=== PATIENT | female | born 1970 | race African-American/Black ===

== ENCOUNTER 2016-12-19 08:41 | Emergency (ER) | payer OTHER, SELFPAY ==
[2016-12-19] MEDS ORDERED: Ketorolac Tromethamine 60 MG/2 ML VIAL ONE (10:25)
--- NOTE | 2016-12-19 12:31 | RAD ---
LUMBAR SPINE 3 VIEWS: Date: 12/19/16 HISTORY: Back pain. FINDINGS: There are six lumbar-type vertebrae. Pedicles are intact. Vertebral body height and alignment are ma intained. No acute fracture or dislocation are apparent. IMPRESSION: Six lumbar-type vertebrae, so that great care must be taken when assigning numbering on cross-sectio nal imaging. No acute osseous abnormalities are demonstrated. POS: YOU
== END 2016-12-19 12:55 | disposition home or self-care (01) ==
LOC: ERS 08:41
DX: M54.5 Low back pain (principal); V43.92XA Unspecified car occupant injured in collision with other type car in traffic accident, initial encounter
CPT/HCPCS: 72100; 96372; J1885

== ENCOUNTER 2017-03-31 15:09 | Emergency (ER) | payer OTHER, SELFPAY ==
[2017-03-31 16:09] LABS: Bilirubin Negative (Negative); Blood, Urine Moderate (Negative); Clarity CLEAR (Clear); Glucose, Urine (Dipstick) Negative (Negative); Leukocyte Small (Negative); Nitrite Negative (Negative); Protein, Urine (Dipstick) Negative (Neg-Trace); Specific Gravity, Urine 1.022 (1.002-1.036); Urobilinogen 0.2 mg/dL (0.2-1.0)
[2017-03-31 16:11] LABS: Pregnancy Test - Urine (BHCG) Negative (Negative); Pregu Control Background? CLEAR/WHITE (CLR/WHITE); Pregu Control Bar Appear? YES (CONTROL BAR); Specific Gravity 1.022 (1.002-1.036)
[2017-03-31 16:13] LABS: Bacteria/HPF None Seen HPF (None Seen); Hyaline Casts/LPF 0-3 HYALINE CAST LPF (0-3 Hyaline); Pathc Cast-AUWi Flag 0.13 (0-2.49); Squamous Epithelial 0-3 HPF (0-3)
== END 2017-03-31 16:24 | disposition home or self-care (01) ==
LOC: ERS 15:09
DX: N39.0 Urinary tract infection, site not specified (principal); J06.9 Acute upper respiratory infection, unspecified
CPT/HCPCS: 81003; 81015; 81025; 87086; 99283

== ENCOUNTER 2017-09-07 15:28 | Emergency (ER) | payer SELFPAY ==
[2017-09-07] MEDS ORDERED: Lidocaine 1% w/Epinephrine 1:100K 20 ML VIAL ONE (16:50)
[2017-09-07] MEDS ORDERED: diphenhydrAMINE 50 MG CAP ONE (17:52)
[2017-09-07] MEDS ORDERED: Ketorolac Tromethamine 30 MG/ML VIAL ONE (17:52)
[2017-09-07] MEDS ORDERED: Metoclopramide HCl 10 MG TAB ONE (17:52)
== END 2017-09-07 18:00 | disposition home or self-care (01) ==
LOC: ERS 15:28
DX: R51 Headache (principal)
CPT/HCPCS: 20552; 96372; J1885; J2001

== ENCOUNTER 2017-09-16 10:02 | Emergency (ER) | payer SELFPAY | END 2017-09-16 11:07 | disposition home or self-care (01) | LOC: ERS 10:02 | DX: B00.1 Herpesviral vesicular dermatitis (principal) | CPT/HCPCS: 99283 ==

== ENCOUNTER 2017-12-02 11:07 | Emergency (ER) | payer SELFPAY ==
[2017-12-02 11:50] LABS: #Eosinphils 0.2 thou/uL (0.0-0.7); #Lymphocytes 2.8 thou/uL (1.20-3.40); #Monocytes 0.6 thou/uL (0.11-0.59); #Neutrophils 3.7 thou/uL (1.40-6.50); %Basophils 0.3 % (0.0-1.0); %Eosinophils 3.1 % (0.0-10.0); %Lymphocytes 38.1 % (21.0-51.0); %Monocytes 7.5 % (0.0-10.0); %Neutrophils 50.9 % (42.0-75.0); Hemoglobin 13.9 g/dL (12.0-16.0); Mean Corpuscular HGB CONC 33.2 g/dL (32.0-36.0); Mean Corpuscular Hemoglobin 30.5 pg (27.0-31.0); Mean Corpuscular Volume 91.9 fL (78.0-98.0); Mean Platelet Volume 9.2 fL (7.4-10.4); Platelet Count 226 thou/uL (130-400); RBC Distribution Width 11.5 % (11.5-14.5); Red Blood Cell (RBC) Count 4.54 mill/uL (4.20-5.40); White Blood Cell (WBC) Count 7.3 thou/uL (4.8-10.8)
[2017-12-02 12:09] LABS: ALT (SGPT) 37 U/L (8-55); AST (SGOT) 28 U/L (5-34); Albumin 4.1 g/dL (3.5-5.0); Alkaline Phosphatase 74 U/L (40-150); Anion Gap 11 mmol/L (10-20); BUN (Urea Nitrogen) 12 mg/dL (7.0-18.7); Bilirubin, Total 0.3 mg/dL (0.2-1.2); Calc. Creatinine Clearance 0 mL/min (70-130); Carbon Dioxide 22 mmol/L (22-29); Chloride 108 mmol/L (98-107); Estimated GFR-MDRD 85; Globulin 4.1 g/dL (2.4-3.5); Glucose 87 mg/dL (70-105); Lipase 31 U/L (8-78); Potassium 4.2 mmol/L (3.5-5.1); Protein, Total 8.2 g/dL (6.0-8.3); Sodium 137 mmol/L (136-145)
[2017-12-02] MEDS ORDERED: Ondansetron ODT 8 MG TAB ONE (12:14)
[2017-12-02 13:03] LABS: Bilirubin Negative (Negative); Blood, Urine Moderate (Negative); Clarity CLOUDY (Clear); Glucose, Urine (Dipstick) Negative (Negative); Leukocyte Large (Negative); Nitrite Negative (Negative); Protein, Urine (Dipstick) Negative (Neg-Trace); Specific Gravity, Urine 1.025 (1.002-1.036); Urobilinogen 0.2 mg/dL (0.2-1.0); pH, Urine 5.5 (5.0-9.0)
[2017-12-02 13:06] LABS: Bacteria/HPF None Seen HPF (None Seen); Hyaline Casts/LPF 0-3 HYALINE CAST LPF (0-3 Hyaline); Pathc Cast-AUWi Flag 0.29 (0-2.49); WBC/HPF 21-50 HPF (0-3)
[2017-12-02 13:09] LABS: Pregnancy Test - Urine (BHCG) Negative (Negative); Pregu Control Background? CLEAR/WHITE (CLR/WHITE); Pregu Control Bar Appear? YES (CONTROL BAR); Specific Gravity 1.025 (1.002-1.036)
== END 2017-12-02 13:43 | disposition home or self-care (01) ==
LOC: ERS 11:07
DX: N39.0 Urinary tract infection, site not specified (principal); R19.7 Diarrhea, unspecified
CPT/HCPCS: 36415; 80053; 81003; 81015; 81025; 83690; 85025; 96372

== ENCOUNTER 2018-02-03 14:10 | Emergency (ER) | payer SELFPAY | END 2018-02-03 14:56 | disposition home or self-care (01) | LOC: ERS 14:10 | DX: L84 Corns and callosities (principal); J30.2 Other seasonal allergic rhinitis | CPT/HCPCS: 99283 ==

== ENCOUNTER 2018-04-16 12:54 | Emergency (ER) | payer SELFPAY | END 2018-04-16 15:30 | disposition home or self-care (01) | LOC: ERS 12:54 | DX: B34.9 Viral infection, unspecified (principal) | CPT/HCPCS: 87804; 99283 ==

== ENCOUNTER 2018-10-15 11:49 | Emergency (ER) | payer SELFPAY ==
[2018-10-15] MEDS ORDERED: Ketorolac Tromethamine 30 MG/ML VIAL ONE (12:06)
--- NOTE | 2018-10-15 12:37 | RAD ---
RADIOGRAPH LEFT KNEE FOUR VIEWS: Date: 10-15-18 History: 47-year-old female with left knee pain after fall, trauma. FINDINGS: No fracture, dislocation, or DJD. No joint effusion. Superficial prepatellar soft tissue swelling. IMPRESSION: 1. Mild superficial prepatellar soft tissue edema/contusion. 2. Otherwise negative. POS: CET
== END 2018-10-15 13:00 | disposition home or self-care (01) ==
LOC: ERS 11:49
DX: S80.02XA Contusion of left knee, initial encounter (principal); W01.0XXA Fall on same level from slipping, tripping and stumbling without subsequent striking against object, initial encounter
CPT/HCPCS: 96372; J1885

== ENCOUNTER 2018-11-25 21:34 | Emergency (ER) | payer SELFPAY ==
[2018-11-25] MEDS ORDERED: Ondansetron PF 4 MG/2 ML Vial ONE (21:57)
[2018-11-25 22:04] LABS: #Basophils 0.2 thou/uL (0.0-0.2); #Eosinphils 0.2 thou/uL (0.0-0.7); #Lymphocytes 5.5 thou/uL (1.20-3.40); #Monocytes 0.9 thou/uL (0.11-0.59); #Neutrophils 5.9 thou/uL (1.40-6.50); %Basophils 1.7 % (0.0-1.0); %Lymphocytes 43.1 % (21.0-51.0); %Monocytes 6.8 % (0.0-10.0); %Neutrophils 46.4 % (42.0-75.0); Hemoglobin 13.6 g/dL (12.0-16.0); Mean Corpuscular HGB CONC 34.7 g/dL (32.0-36.0); Mean Corpuscular Hemoglobin 31.3 pg (27.0-31.0); Mean Corpuscular Volume 90.2 fL (78.0-98.0); Platelet Count 236 thou/uL (130-400); RBC Distribution Width 11.2 % (11.5-14.5); Red Blood Cell (RBC) Count 4.35 mill/uL (4.20-5.40); White Blood Cell (WBC) Count 12.7 thou/uL (4.8-10.8)
[2018-11-25] MEDS ORDERED: Fentanyl 100 MCG/2 ML VIAL ONE (22:11)
[2018-11-25 22:24] LABS: ALT (SGPT) 32 U/L (8-55); AST (SGOT) 19 U/L (5-34); Albumin 4.3 g/dL (3.5-5.0); Alkaline Phosphatase 74 U/L (40-150); Anion Gap 11 mmol/L (10-20); BUN (Urea Nitrogen) 17 mg/dL (7.0-18.7); Bilirubin, Total 0.2 mg/dL (0.2-1.2); Calc. Creatinine Clearance 0 mL/min (70-130); Calcium 9.6 mg/dL (7.8-10.44); Carbon Dioxide 26 mmol/L (22-29); Chloride 104 mmol/L (98-107); Estimated GFR-MDRD 68; Globulin 3.5 g/dL (2.4-3.5); Glucose 143 mg/dL (70-105); Potassium 3.6 mmol/L (3.5-5.1); Protein, Total 7.8 g/dL (6.0-8.3); Sodium 137 mmol/L (136-145)
--- NOTE | 2018-11-25 22:47 | CT ---
CT ABDOMEN NONCONTRAST CT PELVIS NONCONTRAST: (Urolithiasis protocol) DATE: 11/25/2018 HISTORY: 47-year-old female with right flank pain, nausea, and vomiting. COMPARISON: None available TECHNIQUE: IV injection of iodinated contrast media: None Oral contrast media: None FINDINGS: Other than for urolithiasis, the lack of IV and oral contrast limits the evaluation. Diffusely low hepatic attenuation represents fatty liver. Sclerosis of bilateral pubic bones. Sclerosis of both the iliac and sacral sides of the SI joints. No pleural effusion. Nonspecific hazy interstitial densities at bases of bilateral lower lobes. No pneumoperitoneum or ascites. No small bowel dilation. No signs of colonic diverticulitis. Multiple diverticula throughout transverse colon and a few in the descending colon. Normal appendix. There are no renal, ureteral, or bladder calculi. No hydronephrosis. Within the limitations of a noncontrast scan, no abnormality identified involving kidneys, abdominal aorta, adrenals, pancreas, or spleen. There is an unusual bilobed cystic mass at the pelvic inlet. The larger, more superior component karo ures 7 x 6 x 8.5 cm and has thin herrera. It is located near midline. It is connected to a vertically elongated cystic component on its right side which is more complex in shape, but also has thin herrera. At the junction between these 2 cystic components, there is an approximately 3.5 x 3.5 cm irregularly heterogeneously shaped soft tissue density solid mass component. IMPRESSION: 1) complex, multicomponent intrapelvic cystic mass with solid component. One possibility is a right ovarian cystic neoplasm such as ovarian cystadenoma or cystadenocarcinoma. Recommend GUIDE SETTER consultation. 2) hepatic steatosis. 3) no urolithiasis or obstructive uropathy.
[2018-11-25] MEDS ORDERED: Ketorolac Tromethamine 30 MG/ML VIAL ONE (22:56)
[2018-11-25 22:57] LABS: Bacteria/HPF None Seen HPF (None Seen); Bilirubin Negative (Negative); Blood, Urine 2+ (Negative); Clarity Clear (Clear); Glucose, Urine (Dipstick) Normal (Negative); Leukocyte 75 Leu/uL (Negative); Nitrite Negative (Negative); Protein, Urine (Dipstick) 20 mg/dL (Neg-Trace); Urobilinogen Normal mg/dL (Less than 2)
--- NOTE | 2018-11-25 23:59 | ULT ---
ULTRASOUND PELVIC ULTRASOUND TRANSVAGINAL DOPPLER DUPLEX: DATE: 11/25/2018 11:36 PM HISTORY: Right pelvic pain and abnormal CT in 47-year-old female. TECHNIQUE: Transabdominal transducer and endovaginal transducer used to visualize intrapelvic contents with kendrick scale, color-flow, and spectral analysis. FINDINGS: Large complex cystic mass in right adnexa, as described in detail on the CT report. Ultrasound measur ements of 7.5 x 7 x 6 cm. At least one thick septation between large upper chamber and lower chamber of stenosis. Blood flow demonstrated in wall of right cystic mass, perhaps representing disto rted ovarian parenchyma. Left ovary is 1.5 x 2 x 1 cm, and has blood flow demonstrated by Doppler. No significant free fluid in the cul-de-sac. Uterus: 8.5 x 3.5 x 4.5 cm. Endometrial stripe: 0.3 cm Questionable 2.5 cm left uterine fibroid IMPRESSION: Large complex cystic right adnexal mass.
== END 2018-11-26 00:21 | disposition home or self-care (01) ==
LOC: ERS 21:34
DX: N83.9 Noninflammatory disorder of ovary, fallopian tube and broad ligament, unspecified (principal)
CPT/HCPCS: 74176; 76856; 80053; 81003; 81015; 85025; 94760; 96361; 96374; 96375; J1885; J2405; J3010